=== PATIENT | female | born 1965 | race Caucasian/White ===

== ENCOUNTER 2016-12-27 16:53 | Emergency (ER) | payer BC ==
[~2016-12-27 16:53] MED LIST: APPETITE SUPPRESSANT; HRT BASE; PHENTERMINE37.5 MG PO
== END 2016-12-27 19:02 | disposition home or self-care (01) ==
LOC: ER 16:53
DX: R07.81 Pleurodynia (principal); Z79.899 Other long term (current) drug therapy
CPT/HCPCS: 71020; 71100-RT; 96372; 99284; J1170

== ENCOUNTER → 2017-02-08 16:00 | Emergency (ER) | payer BC | END | disposition home or self-care (01) | LOC: ER 16:00 | DX: M54.5 Low back pain (principal); M25.562 Pain in left knee; Z79.899 Other long term (current) drug therapy | CPT/HCPCS: 72100; 73560-LT; 96372; 99283 ==